=== PATIENT | female | born 1950 | race Caucasian/White ===

== ENCOUNTER 2017-04-04 05:33 | Outpatient (CLI) | payer MEDICARE ==
[~2017-04-04] VITALS: Ht 157.5 cm; Wt 88.9 kg
[2017-04-04] MEDS ORDERED: NAPR500T PO (11:05)
[2017-04-04] MEDS ORDERED: CITA40TA19 PO (11:05)
[2017-04-04] MEDS ORDERED: CHOL500044 PO (11:05)
[2017-04-04] MEDS ORDERED: CHOL500049 PO (11:05)
[2017-04-04] MEDS ORDERED: GABA-488 PO (11:05)
[2017-04-04] MEDS ORDERED: ATOR10TA PO (11:05)
[2017-04-04] MEDS ORDERED: DOXE25CA46 PO (11:05)
[2017-04-04] MEDS ORDERED: PANT40TA2 PO (11:05)
[2017-04-04] MEDS ORDERED: CYAN10006 PO (11:05)
[2017-04-04] MEDS ORDERED: LEVO100T PO (11:05)
[2017-04-04] MEDS ORDERED: ASPI-586 PO (11:05)
[2017-04-04] MEDS ORDERED: METH2.5T PO (11:05)
== END 2017-04-04 11:23 ==
LOC: PREOP 05:33
PROVIDERS: ATTEND Surgery
DX: Z01.818 Encounter for other preprocedural examination (principal); E66.01 Morbid (severe) obesity due to excess calories; Z68.35 Body mass index [BMI] 35.0-35.9, adult

== ENCOUNTER 2017-04-10 10:06 | Inpatient (IN) | payer MEDICARE, OTHER ==
[~2017-04-10] VITALS: Ht 157.5 cm; Wt 88.9 kg
[~2017-04-10 10:06] MED LIST: ASPI-586 PO; ATOR10TA PO; CHOL500044 PO; CHOL500049 PO; CITA40TA19 PO; CYAN10006 PO; DOXE25CA46 PO; GABA-488 PO; LEVO100T PO; METH2.5T PO; NAPR500T PO; PANT40TA2 PO
[2017-04-10 10:30] VITALS: BP 145/69
[2017-04-10 10:38] LABS: MEAN PLATELET VOLUME 10.6 FL (7.4-10.4); RED BLOOD COUNT 4.1 10^6/uL (4.35-5.85); RED CELL DISTRIBUTION WIDTH 12.9 % (10.0-14.5); WHITE BLOOD COUNT 4.5 10^3/uL (4.3-11.0)
[2017-04-10] MEDS ORDERED: CATHETER FLUSH 10 ML SYR IV PRN (10:45)
[2017-04-10] MEDS ORDERED: ceFAZolin 1 GM/NS 50 ML IVPB IV ONE ×2 (10:45)
[2017-04-10] MEDS ORDERED: FAMOTIDINE 20MG/2ML IV (PEPCID) IV ONE (11:00)
--- NOTE | 2017-04-10 11:33 | Progress Note-Pre Operative ---
Pre-Operative Progress Note H&P Reviewed The H&P was reviewed, patient examined and no changes noted. Date Seen by Provider: Apr 10, 2017 Time Seen by Provider: 11:30 Date H&P Reviewed: Apr 10, 2017 Time H&P Reviewed: 11:30 Pre-Operative Diagnosis: morbid obesity, HTN, GERD JUDAH GREER MD Apr 10, 2017 11:33 am
[2017-04-10] MEDS: LACTATED RINGERS 1,000 ML IV PRN ×2 (12:30→14:34)
[2017-04-10] MEDS ORDERED: BUP/EPI 0.5% 1:200,000 (MARCAINE) 10ML VIAL IJ ONE (14:02)
[2017-04-10] MEDS ORDERED: fentaNYL INJECTION 250 MCG/5 ML AMP ONE (14:04)
[2017-04-10] MEDS ORDERED: MIDAZOLAM 2 MG/2 ML (VERSED) VIAL ONE (14:05)
[2017-04-10] MEDS ORDERED: ATROPINE INJ 0.4 MG/ML SDV ONE (14:58)
[2017-04-10] MEDS ORDERED: ONDANSETRON 4 MG/2 ML (SDV) Z0FRAN ONE (16:31)
[2017-04-10] MEDS ORDERED: ROCURONIUM 50 MG/5 ML (ZEMURON) VIAL IV ONE (16:31)
[2017-04-10] MEDS ORDERED: SEVOFLURANE (ULTANE) 15 ML INHAL SOLN ONE (16:31)
[2017-04-10] MEDS ORDERED: GLYCOPYRROLATE 0.2 MG/ML (ROBINUL) 2 ML VIAL ONE (16:31)
[2017-04-10] MEDS ORDERED: LIDOCAINE PF 2% 5 ML (XYLOCAINE) VIAL ONE (16:31)
[2017-04-10] MEDS ORDERED: NEOSTIGMINE (BLOXIVERZ ) 1 MG/1ML 10 ML VIAL ONE (16:31)
[2017-04-10] MEDS ORDERED: proPOfol 200 MG/20 ML (DIPRIVAN) VIAL IV ONE (16:31)
[2017-04-10] MEDS ORDERED: DEXAMETHASONE 10 MG/ML (DECADRON) 1 ML VIAL ONE (16:31)
[2017-04-10] MEDS ORDERED: NS IV 1000 ML 1,000 ML IV SCH (16:44)
--- NOTE | 2017-04-10 16:44 | Progress Note-Post Operative ---
Post-Operative Progess Note Surgeon (s)/Machine Feeder Raw Stock (s) Surgeon JUDAH GREER MD Machine Feeder Raw Stock: mikhail salinas [employer] PLAN DEMONSTRATOR Pre-Operative Diagnosis morbid obesity, HTN, GERD Post-Operative Diagnosis same, moderate size hiatal hernia. Procedure & Operative Findings Date of Procedure 04/10/17 Procedure Performed/Findings laparoscopic gastric sleeve resection, hiatal hernia repair Anesthesia Type GET Estimated Blood Loss Estimated blood loss (mL): minimal Specimens/Packing Specimens Removed stomach JUDAH GREER MD Apr 10, 2017 4:44 pm
[2017-04-10] MEDS ORDERED: METOCLOPRAMIDE INJ 10 MG/2 ML (REGLAN) IV PRN (16:45)
[2017-04-10] MEDS ORDERED: diphenhydrAMINE 50 MG/ML INJ (BENADRYL) IV PRN (16:45)
[2017-04-10] MEDS ORDERED: ONDANSETRON 4 MG/2 ML (SDV) Z0FRAN IV PRN (16:45)
[2017-04-10] MEDS ORDERED: oxyCODONE 20 MG/1 ML ORAL CONC (RoxiCODONE) CHARGE PER 1 ML PO PRN (16:45)
[2017-04-10] MEDS ORDERED: RT-ALBUTEROL SULF 2.5 MG/3 ML PRE-MIX VIAL INH SCH (16:45)
[2017-04-10] MEDS ORDERED: NALOXONE 0.4 MG/ML 1 ML (NARCAN) VIAL IV PRN (16:45)
[2017-04-10] MEDS ORDERED: fentaNYL PCA 300 MCG/30 ML VIAL IV PRN (16:45)
[2017-04-10] MEDS ORDERED: diphenhydrAMINE 50 MG/ML INJ (BENADRYL) IVP PRN (16:45)
--- NOTE | 2017-04-10 17:01 | Discharge Inst-Surgical ---
D/C Lap Instructions-ZOEY New, Converted, or Re-Newed RX: RX on Chart Follow Up Appt in 2 weeks Activity as tolerated No driving for 24 hours No driving while on pain medications Incentive Spirometry use every 2 hours while awake Phase 1 clear liquid diet 2 weeks. Symptoms to Report: Fever over 101 degree F, Nausea/Vomiting Infection Signs and Symptoms to report: Increased redness, Foul odor of wound, Increased drainage Bathing instructions: May shower Operative Area Clean/Dry; Keep incision clean/dry If any problems/questions: Contact your physician or go to Emergency Room JUDAH GREER MD Apr 10, 2017 5:01 pm
[2017-04-10] MEDS ORDERED: HYDROmorphone (DILAUDID) 2 MG/ML VIAL IVP PRN (17:15)
[2017-04-10] MEDS ORDERED: ONDANSETRON 4 MG/2 ML (SDV) Z0FRAN IVP PRN (17:15)
[2017-04-10] MEDS ORDERED: PROMETHAZINE INJ 25 MG/ML (PHENERGAN) AMP IVP PRN (17:15)
[2017-04-10] MEDS: morphine INJ 10 MG/ML 1ML (SYR OR VIAL) IVP PRN ×2 (17:16→17:23)
[2017-04-10 17:56] VITALS: BP 152/73
[2017-04-10] MEDS ORDERED: D5 NS W/KCL 20 MEQ/L 0 ML IV ONE (18:31)
[2017-04-10] MEDS: 1/2 NS W/KCL 20 MEQ/L 1,000 ML IV SCH ×2 (18:50→23:23)
[2017-04-10 18:56] VITALS: BP 154/70
[2017-04-10] MEDS: metroNIDAZOLE 500MG/100ML IVPB 100 ML IV SCH (19:40)
[2017-04-10] MEDS: METOCLOPRAMIDE INJ 10 MG/2 ML (REGLAN) IVP SCH ×2 (19:40→23:23)
[2017-04-10] MEDS: ONDANSETRON 4 MG/2 ML (SDV) Z0FRAN IVP SCH ×2 (19:46→23:22)
[2017-04-10 19:56] VITALS: BP 149/71
[2017-04-10] MEDS ORDERED: INFLUENZA TRIvalent 2017-2018 0.5 ML/45 MCG SYR IM ONE (20:15)
[2017-04-10 20:56] VITALS: BP 139/71
[2017-04-10] MEDS: ceFAZolin 2 GM/50 ML NS 50 ML IV SCH (21:21)
[2017-04-10] MEDS: ENOXAPARIN 30 MG/0.3 ML (LOVENOX) SYR SC SCH (21:21)
[2017-04-10] MEDS: RT-ALBUTEROL SULF 2.5 MG/3 ML PRE-MIX VIAL INH SCH (22:33)
[2017-04-11 00:47] VITALS: BP 121/64
--- NOTE | 2017-04-11 01:08 | OPERATIVE REPORT ---
DATE OF SERVICE: 04/10/2017 ATTENDING PRIMARY CARE PHYSICIANS: Dr. Hernández and Dr. Keller in [place]. PREOPERATIVE DIAGNOSES: Morbid obesity, gastroesophageal reflux disease, hyperlipidemia, hiatal hernia. POSTOPERATIVE DIAGNOSES: Morbid obesity, gastroesophageal reflux disease, hyperlipidemia, with a moderate-sized hiatal hernia, approximately 3 to 4 cm in size. PROCEDURE: Laparoscopic hiatal hernia repair and gastric sleeve resection. SURGEON: Dr. Peter. MEMBER OF PARLIAMENT: Chai Nichols APRN. ANESTHESIA: General endotracheal. ESTIMATED BLOOD LOSS: Minimal. FINDINGS: Moderate-sized hiatal hernia, 3 to 4 cm in size with stomach within the hernia sac. Liver and gallbladder appeared normal. DISPOSITION: The patient tolerated the procedure well. INDICATIONS FOR PROCEDURE: The patient is a 66-year-old female with morbid obesity and medical comorbidities related to her obesity, in our surgical weight loss program for the gastric sleeve resection and meets the medical criteria for bariatric surgery. She began to gain the majority of her adult weight over the past 15 years and started when she started menopause. She has tried multiple diet and exercise attempts without any success. She has tried diet programs including [place], Atkins, Weight Watchers, Slim-Fast, Dunia Dannie and would have some success; however, would regain the weight back. She has tried exercise regimens including treadmill, elliptical management trainer, walking; however, has not had any success. She has tried medications including garcinia cambogia with no results. Her medical comorbidities related to her obesity include gastroesophageal reflux disease, hyperlipidemia, anxiety and depression. A preoperative upper GI also identified a hiatal hernia. DESCRIPTION OF PROCEDURE: The patient was brought to the operating room, laid supine on the table. After adequate IV pain and sedative medications and general endotracheal intubation, the abdomen was prepped and draped in a standard surgical fashion. A 0.5% Marcaine with epinephrine was then used to anesthetize the overlying skin in the left upper abdominal quadrant and a small transverse skin incision made using a 15-blade. A 0 silk suture was applied to the medial aspect of the incision for retraction and a Veress needle inserted with a low opening pressure of 0 mmHg. The abdomen was then insufflated to 15 mmHg pressure. The Veress needle removed and a 5 mm Xcel trocar placed followed by a 5 mm 45-degree angle laparoscope visualizing the peritoneal cavity. A 4-quadrant abdominal exploration was performed. There was a hiatal hernia, which was moderate in size, approximately 3 to 4 cm in size. The liver and gallbladder appeared normal. Under direct visualization, we then proceeded to place a midabdominal left of midline 10 mm port. After the skin and peritoneum were anesthetized using 0.5% Marcaine with epinephrine, a transverse skin incision made using a 15-blade. In a similar manner, a midabdominal right of midline 15 mm port was placed, followed by a right upper abdominal quadrant 5 mm port. An area in the epigastric region was then anesthetized and a small transverse skin incision made using 11-blade. Through this opening, a tract was created through the abdominal wall layers using a trocar to a 5 mm port. Through this opening, a medium-sized Nathansen liver retractor was placed in the left lobe of the liver, retracting anteriorly and superiorly. The patient was then placed in a steep reverse Trendelenburg position. We then measured 6 cm from the pylorus along the greater curvature and marked this with a marking pen. We then opened the gastrocolic ligament next to the stomach entering the lesser sac. We then proceeded with inferior dissection until we were approximately 2 cm below our marking. We then proceeded in a cephalad direction, taking down the short gastric vessels. The angle of His connective tissue fibers were dissected out as well, as well as the hiatal hernia including all of the mesenteric lining exposing the jairo of the diaphragm. We then proceeded with anterior repair using multiple 2-0 Surgidac interrupted sutures using this EndoStitch with visualization of good hemostasis. This was done over a 42-Maori bougie. The bougie was directed into the pylorus and we then proceeded with the gastric sleeve resection. A FLORENCIA 45 mm polyglycolic acid black load was then used to transect and staple the stomach 2 cm below our marking. We then proceeded with our gastric sleeve resection using 3 purple load staplers with visualization of good hemostasis, leaving 2 cm of the gastroesophageal junction intact. Good hemostasis was observed. The staple line corners were then clipped with 5 mm clips. Tisseel fibrin glue was then placed on the staple line and the omentum placed back over the staple line. The liver retractor and bougie were then removed. The stomach was removed through the 15 mm port site using an EndoCatch bag. The 10 mm and 15 mm port site fascia and peritoneum were then closed under direct visualization using a Rob-Suraj device and 0 Vicryl suture. Abdomen was desufflated and remaining ports removed. All skin incisions were closed using 4-0 Monocryl running subcuticular sutures. Wounds were then cleaned and covered with Dermabond. The patient tolerated the procedure well. We will admit her for observation and start IV and oral pain medication including a PIT MANAGER. We will also proceed with DVT prophylaxis with early ambulation, calf SCDs as well as Lovenox injections. Tomorrow morning, we will start the patient on clear liquid diet and once she is tolerating 60 mL of fluid every half-hour, has adequate pain control with oral pain medications and ambulating well, we will discharge her home. She will be instructed to proceed with the 2 weeks of clear liquid diet for the next 2 weeks and avoid any lifting or exertion as well. Job ID: [id number] DocumentID: [id number] Dictated Date: 04/10/2017 17:14:17 Crm Developer Date: 04/11/2017 01:07:05 Dictated By: JUDAH PETER MD
[2017-04-11] MEDS: RT-ALBUTEROL SULF 2.5 MG/3 ML PRE-MIX VIAL INH SCH ×2 (02:48→07:10)
[2017-04-11] MEDS: metroNIDAZOLE 500MG/100ML IVPB 100 ML IV SCH (02:55)
[2017-04-11] MEDS: 1/2 NS W/KCL 20 MEQ/L 1,000 ML IV SCH (02:56)
[2017-04-11] MEDS ORDERED: PANTOPRAZOLE 40 MG/10 ML (PROTONIX) VIAL ONE (04:33)
[2017-04-11 04:56] VITALS: BP 128/60
[2017-04-11] MEDS: ceFAZolin 2 GM/50 ML NS 50 ML IV SCH (05:16)
[2017-04-11] MEDS: METOCLOPRAMIDE INJ 10 MG/2 ML (REGLAN) IVP SCH (05:17)
[2017-04-11] MEDS: ONDANSETRON 4 MG/2 ML (SDV) Z0FRAN IVP SCH (05:17)
[2017-04-11 06:05] LABS: MEAN PLATELET VOLUME 10.4 FL (7.4-10.4); RED BLOOD COUNT 3.49 10^6/uL (4.35-5.85); RED CELL DISTRIBUTION WIDTH 12.8 % (10.0-14.5); WHITE BLOOD COUNT 8.9 10^3/uL (4.3-11.0)
[2017-04-11 06:24] LABS: CALCIUM 8.9 MG/DL (8.5-10.1); CREATININE SERUM 1.03 MG/DL (0.60-1.30); POTASSIUM 4.3 MMOL/L (3.6-5.0)
[2017-04-11 08:00] VITALS: BP 136/62
[2017-04-11] MEDS: ENOXAPARIN 30 MG/0.3 ML (LOVENOX) SYR SC SCH (08:56)
[2017-04-11] MEDS ORDERED: PANTOPRAZOLE 40 MG/10 ML (PROTONIX) VIAL IV SCH (09:00)
[2017-04-11] MEDS ORDERED: SENNA W/DOCUSATE (SENOKOT S) TABLET PO SCH (09:00)
[2017-04-11 10:20] VITALS: BP 136/62
--- NOTE | 2017-04-11 12:47 | Anesthesia-General Post-Op ---
General Patient Condition Mental Status/LOC: Same as Preop Cardiovascular: Satisfactory Nausea/Vomiting: Absent Respiratory: Satisfactory Pain: Controlled Complications: Absent Post Op Complications Complications None Follow Up Care/Instructions Patient Instructions None needed. Anesthesia/Patient Condition Patient Condition Patient is doing well, no complaints, stable vital signs, no apparent adverse anesthesia problems. No complications reported per nursing. D/C home per [facility] Criteria: No MILANA GOLD CRNA Apr 11, 2017 12:47
[2017-04-11] MEDS ORDERED: ONDANSETRON 4 MG/2 ML (SDV) Z0FRAN IVP PRN (16:45)
[2017-04-11] MEDS ORDERED: METOCLOPRAMIDE INJ 10 MG/2 ML (REGLAN) IVP PRN (16:45)
== END 2017-04-11 10:20 | disposition home or self-care (01) | DRG 621 ==
LOC: 4TH 10:06 → SURG 10:07 → EDSTATUS 13:15 → 4TH 18:08
PROVIDERS: ADMIT Surgery; ATTEND Surgery
PROC: 0BQT4ZZ Repair Diaphragm, Percutaneous Endoscopic Approach (ICD-10-PCS; 2017-04-10)
PROC: 0DB64Z3 Excision of Stomach, Percutaneous Endoscopic Approach, Vertical (ICD-10-PCS; principal; 2017-04-10 16:47)
DX: E66.01 Morbid (severe) obesity due to excess calories (principal); Z68.35 Body mass index [BMI] 35.0-35.9, adult; K44.9 Diaphragmatic hernia without obstruction or gangrene; K21.9 Gastro-esophageal reflux disease without esophagitis; I10 Essential (primary) hypertension; E78.5 Hyperlipidemia, unspecified; F41.9 Anxiety disorder, unspecified; F32.9 Major depressive disorder, single episode, unspecified; E03.9 Hypothyroidism, unspecified; M19.91 Primary osteoarthritis, unspecified site; J32.9 Chronic sinusitis, unspecified; Z79.82 Long term (current) use of aspirin
CPT/HCPCS: 36415; 80048; 85027; 87081; 88305; 94640; 94664; 94760